=== PATIENT | female | born 1990 | race Caucasian/White ===

== ENCOUNTER 2017-03-12 20:58 | Inpatient (IN) | payer BC ==
[2017-03-12] MEDS ORDERED: Water For Irrigation,Sterile 1,000 ML Container IRR PRN (23:30)
[2017-03-12] MEDS ORDERED: Butorphanol 1 MG/ML SDV IVPUSH PRN (23:30)
[2017-03-12] MEDS ORDERED: Carboprost Tromethamine 250 MCG/1 ML Amp IM PRN (23:30)
[2017-03-12] MEDS ORDERED: Lidocaine 1% 50 ML MDV INJECT PRN (23:30)
[2017-03-12] MEDS ORDERED: Sodium Chloride 0.9% 10 ML Syringe FLUSH PRN (23:30)
[2017-03-12] MEDS ORDERED: Misoprostol 200 MCG Tab PO PRN (23:30)
[2017-03-12] MEDS ORDERED: Methylergonovine 0.2 MG/1 ML Amp IM PRN (23:30)
[2017-03-12] MEDS ORDERED: Sodium Chloride 0.9% 2.5 ML Syringe FLUSH PRN (23:30)
[2017-03-13] MEDS: Lactated Ringers 1,000 ML IV SCH ×3 (00:03→01:29)
[2017-03-13] MEDS ORDERED: Ropivacaine 0.2% 2 MG/ML 20 ML SDV ONE (00:34)
[2017-03-13] MEDS ORDERED: Oxytocin/Lactated Ringers 30 UNIT/500 ML BAG IV SCH (01:00)
--- NOTE | 2017-03-13 01:22 | PCM.PREANE ---
Preanesthetic Assessment - Anesthesia/Transfusion/Family Hx Anesthesia History: Prior Anesthesia Without Reaction Family History of Anesthesia Reaction: No Transfusion History: No Prior Transfusion(s) - Review of Systems Other: Reports: None - Physical Assessment Height: 5 ft 5 in Weight: 92.986 kg ASA Class: 2 Mental Status: Alert & Oriented x3 Airway Class: Mallampati = 2 Dentition: Reports: Normal Dentition Thyro-Mental Finger Breadths: 3 Mouth Opening Finger Breadths: 2 ROM/Head Extension: Full - Lab Values: Laboratory Last Values WBC 16.51 K/uL (4.0-11.0) H 03/13/17 00:03 RBC 4.76 M/uL (4.30-5.90) 03/13/17 00:03 Hgb 13.6 g/dL (12.0-16.0) 03/13/17 00:03 Hct 40.5 % (36.0-46.0) 03/13/17 00:03 MCV 85.1 fL (80.0-98.0) 03/13/17 00:03 MCH 28.6 pg (27.0-32.0) 03/13/17 00:03 MCHC 33.6 g/dL (31.0-37.0) 03/13/17 00:03 RDW Std Deviation 42.4 fl (28.0-62.0) 03/13/17 00:03 RDW Coeff of Chato 14 % (11.0-15.0) 03/13/17 00:03 Plt Count 163 K/uL (150-400) 03/13/17 00:03 MPV 9.80 fL (7.40-12.00) 03/13/17 00:03 Nucleated RBC % 0.0 /100WBC 03/13/17 00:03 Nucleated RBCs # 0 K/uL 03/13/17 00:03 - Allergies Allergies/Adverse Reactions: Allergies Allergy/AdvReac Type Severity Reaction Status Date / Time No Known Allergies Allergy Verified 11/23/16 18:16 - Blood Blood Available: Yes Product(s) Available: PRBC - Acknowledgements Anesthesia Type Planned: Epidural Pt an Appropriate Candidate for the Planned Anesthesia: Yes Alternatives and Risks of Anesthesia Discussed w Pt/Guardian: Yes Pt/Guardian Understands and Agrees with Anesthesia Plan: Yes PreAnesthesia Questionnaire - Past Surgical History HEENT Surgical History: Reports: Oral Surgery, Tonsillectomy - CURRENT (IN HOUSE) MEDS Current Meds: Current Medications Butorphanol Tartrate (Stadol) 1 mg IVPUSH Q1H PRN PRN Reason: Pain Last Admin: 03/13/17 00:05 Dose: 1 mg Carboprost Tromethamine (Hemabate Ds) 250 mcg IM ASDIRECTED PRN PRN Reason: Post Hemorrhage Lactated Ringer's (Ringers, Lactated) 1,000 mls @ 150 mls/hr IV ASDIRECTED JUDY Last Admin: 03/13/17 00:38 Dose: 999 mls/hr Oxytocin/Lactated Ringer's (Pitocin In Lr 30 Units/500 Ml) 30 unit in 500 mls @ 500 mls/hr IV ASDIRECTED JUDY PRN Reason: 500 MUNITS/MIN Stop: 03/13/17 01:59 Lidocaine HCl (Xylocaine 1%) 50 ml INJECT .ONCE PRN PRN Reason: Laceration repair Methylergonovine Maleate (Methergine) 0.2 mg IM ASDIRECTED PRN PRN Reason: Post Hemorrhage Misoprostol (Cytotec) 200 mcg PO .ONCE PRN PRN Reason: Post Hemorrhage Sodium Chloride (Saline Flush) 10 ml FLUSH ASDIRECTED PRN PRN Reason: Keep Vein Open Sodium Chloride (Saline Flush) 2.5 ml FLUSH ASDIRECTED PRN PRN Reason: Keep Vein Open Sterile Water (Sterile Water For Irrigation) 1,000 ml IRR ASDIRECTED PRN PRN Reason: delivery Discontinued Medications Ropivacaine/Fentanyl/NS (Fentanyl 2 Mcg-Ropiv 0.2%-Ns) Confirm Administered Dose 100 mls @ as directed .ROUTE .STK-MED ONE Stop: 03/13/17 00:35 Ropivacaine (Naropin 0.2%) Confirm Administered Dose 20 ml .ROUTE .STK-MED ONE Stop: 03/13/17 00:35
[2017-03-13] MEDS ORDERED: Lanolin 100% Cream 7 GM Tube TOP PRN (08:11)
[2017-03-13] MEDS ORDERED: Witch Hazel Medicated Pads 40/Jar TOP PRN (08:11)
[2017-03-13] MEDS ORDERED: Methylergonovine 0.2 MG/1 ML Amp IM PRN (08:11)
[2017-03-13] MEDS ORDERED: Docusate Sodium 100 MG Cap PO PRN (08:11)
[2017-03-13] MEDS ORDERED: Benzocaine/Menthol 20%-0.5% Spray 78 GM Cannister TOP PRN (08:11)
[2017-03-13] MEDS ORDERED: Bisacodyl 10 MG Supp RECTAL PRN (08:11)
[2017-03-13] MEDS ORDERED: oxyCODONE 5 MG Tab PO PRN (08:11)
--- NOTE | 2017-03-13 10:42 | PCM48HPAN ---
Post Anesthesia Note - EVALUATION WITHIN 48HRS OF ANESTHETIC Vital Signs in Normal Range: Yes Patient Participated in Evaluation: Yes Respiratory Function Stable: Yes Airway Patent: Yes Cardiovascular Function Stable: Yes Hydration Status Stable: Yes Pain Control Satisfactory: Yes Nausea and Vomiting Control Satisfactory: Yes Mental Status Recovered: Yes
--- NOTE | 2017-03-13 13:10 | OR ---
SURGEON: Amita Smith M.D. DATE OF PROCEDURE: 03/13/2017 PREOPERATIVE DIAGNOSIS: A 40 and 1/7th week intrauterine , active spontaneous labor. POSTOPERATIVE DIAGNOSIS: A 40 and 1/7th week intrauterine , active spontaneous labor. PROCEDURE: Term spontaneous vaginal delivery with repair of left labial laceration. ANESTHESIA: Epidural. ESTIMATED BLOOD LOSS: Less than 300 mL. FINDINGS: Live born male, score 8 and 9. Weight is 3640 g. Placenta spontaneous, Melissa intact with 3 vessels. Left labial laceration was repaired for hemostasis. COMPLICATIONS: None known. DISPOSITION: Mother and baby are stable in recovery. BRIEF HISTORY: This is a 26-year-old female, G1, P0. She presents at 40 weeks gestation with regular painful contractions. She presents to Labor and Delivery, initially 2-3 cm dilated, progressed to 5 cm dilatation. She received an epidural for pain control. When she was 6 to 7 cm dilated, she progressed to complete with a bulging bag. Artificial rupture of membranes was performed. She had category 1 heart tones throughout stage I of labor. During stage II of labor, she had category 1 and category 2 heart tones always with good variability. DESCRIPTION OF PROCEDURE: With the patient in dorsal lithotomy position, the patient pushed over a 2.5 hour time period to a 5+ station, at which time the head was delivered spontaneously and atraumatically over the perineum with support with subsequent delivery of the 's shoulders and body. The infant was bulb suctioned by nose and mouth. The cord was clamped x2 and cut, and the infant was handed to the nurse in attendance at delivery. The infant was a liveborn male, score 8 and 9, weighing 3640 g. Cord blood was collected for cord ABGs as well as routine cord blood sampling. Pitocin was initiated after delivery of the to assist with delivery of the placenta, which was delivered spontaneously, Melissa intact with 3 vessels. Upon inspection of the pelvis and perineum, there were no periurethral, vaginal sidewall, cervical, rectal, or perineal lacerations. There was a left labial laceration that was repaired with a running subcuticular suture of 3-0 Caprosyn. Final sponge, needle, instrument count were correct. There were no known complications. The and mother are in LDRP in good condition. CAROLINE / ALEX /[id number]
[2017-03-13] MEDS: Ibuprofen 800 MG Tab PO PRN (20:07)
[2017-03-13] MEDS: Acetaminophen 500 MG Tab PO PRN (21:48)
[2017-03-14] MEDS: Ibuprofen 800 MG Tab PO PRN ×3 (02:48→22:57)
--- NOTE | 2017-03-14 09:57 | PCM.PNPP ---
- General Info Date of Service: 03/14/17 Functional Status: Reports: pain controlled, tolerating diet, ambulating, urinating - Review of Systems General: Reports: No Symptoms HEENT: Reports: no symptoms Pulmonary: Reports: no symptoms Cardiovascular: Reports: No Symptoms Gastrointestinal: Reports: No symptoms Genitourinary: Reports: no symptoms Musculoskeletal: Reports: no symptoms Skin: Reports: no symptoms Neurological: Reports: No Symptoms Psychiatric: Reports: no symptoms - Patient Data Vital Signs - most recent: Last Vital Signs Temp 36.2 C 03/14/17 07:32 Pulse 66 03/14/17 07:32 Resp 16 03/14/17 07:32 BP 92/53 L 03/14/17 07:32 Pulse Ox 98 03/14/17 07:32 Weight - most recent: 92.986 kg Lab Results - last 24 hrs: Laboratory Results - last 24 hr 03/14/17 Range/Units 05:50 Hgb 11.5 L (12.0-16.0) g/dL Hct 34.6 L (36.0-46.0) % Med Orders - Current: Current Medications Acetaminophen (Tylenol Extra Strength) 1,000 mg PO Q4H PRN PRN Reason: Pain Last Admin: 03/13/17 21:48 Dose: 1,000 mg Benzocaine/Menthol (Dermoplast Pain Relief 20%-0.5% [place]) 78 gm TOP ASDIRECTED PRN PRN Reason: Perineal Comfort Measure Last Admin: 03/13/17 15:41 Dose: 78 gm Bisacodyl (Dulcolax) 10 mg RECTAL .ONCE PRN PRN Reason: Constipation Docusate Sodium (Colace) 100 mg PO BID PRN PRN Reason: Constipation Emollient Ointment (Lansinoh Hpa) 0 gm TOP ASDIRECTED PRN PRN Reason: Sore Nipples Ibuprofen (Motrin) 800 mg PO Q6H PRN PRN Reason: Pain Last Admin: 03/14/17 02:48 Dose: 800 mg Methylergonovine Maleate (Methergine) 0.2 mg IM .ONCE PRN PRN Reason: Excessive Vaginal Bleeding Oxycodone HCl (Oxycodone) 5 mg PO Q2H PRN PRN Reason: Pain Witch Silva (Tucks) 1 pad TOP ASDIRECTED PRN PRN Reason: comfort care Last Admin: 03/13/17 15:41 Dose: 1 pad Discontinued Medications Butorphanol Tartrate (Stadol) 1 mg IVPUSH Q1H PRN PRN Reason: Pain Last Admin: 03/13/17 00:05 Dose: 1 mg Carboprost Tromethamine (Hemabate Ds) 250 mcg IM ASDIRECTED PRN PRN Reason: Post Hemorrhage Lactated Ringer's (Ringers, Lactated) 1,000 mls @ 150 mls/hr IV ASDIRECTED JUDY Last Infusion: 03/13/17 07:30 Dose: Infused Oxytocin/Lactated Ringer's (Pitocin In Lr 30 Units/500 Ml) 30 unit in 500 mls @ 500 mls/hr IV ASDIRECTED JUDY PRN Reason: 500 MUNITS/MIN Stop: 03/13/17 01:59 Last Infusion: 03/13/17 08:05 Dose: Infused Ropivacaine/Fentanyl/NS (Fentanyl 2 Mcg-Ropiv 0.2%-Ns) Confirm Administered Dose 100 mls @ as directed .ROUTE .[facility] ONE Stop: 03/13/17 00:35 Last Admin: 03/13/17 02:17 Dose: Not Given Lidocaine HCl (Xylocaine 1%) 50 ml INJECT .ONCE PRN PRN Reason: Laceration repair Last Admin: 03/13/17 07:45 Dose: 50 ml Methylergonovine Maleate (Methergine) 0.2 mg IM ASDIRECTED PRN PRN Reason: Post Hemorrhage Misoprostol (Cytotec) 200 mcg PO .ONCE PRN PRN Reason: Post Hemorrhage Ropivacaine (Naropin 0.2%) Confirm Administered Dose 20 ml .ROUTE .[facility] ONE Stop: 03/13/17 00:35 Last Admin: 03/13/17 02:17 Dose: Not Given Sodium Chloride (Saline Flush) 10 ml FLUSH ASDIRECTED PRN PRN Reason: Keep Vein Open Sodium Chloride (Saline Flush) 2.5 ml FLUSH ASDIRECTED PRN PRN Reason: Keep Vein Open Sterile Water (Sterile Water For Irrigation) 1,000 ml IRR ASDIRECTED PRN PRN Reason: delivery Last Admin: 03/13/17 07:29 Dose: 1,000 ml - Infant Interaction Disposition, : to Nursery Infant Interaction: Not Interacting Feeding: Breastfed ; Nursed Well Support Person: , Mother - Recovery Exam Fundal Tone: Firm Fundal Level: 1 Fingerbreadths Below Umbilicus Fundal Placement: Midline Lochia Amount: Scant Lochia Color: Rubra/Red Perineum Description: Edematous Episiotomy/Laceration: Approximated Bladder Status: Voiding Urinary Elimination: Voided - Exam General: alert, oriented HEENT: Pupils equal Neck: supple Cardiovascular: Regular Rhythm Abdomen: soft, no tenderness, no distension Extremities: no edema Skin: warm, dry, intact Neurological: no new focal deficit Psy/Mental Status: alert, normal affect, normal mood - Problem List & Annotations (1) Vaginal delivery SNOMED Code(s): 554336755 Code(s): O80 - ENCOUNTER FOR FULL-TERM UNCOMPLICATED DELIVERY Status: Acute Current Visit: Yes - Problem List Review Problem List Initiated/Reviewed/Updated: Yes - My Orders Last 24 Hours: My Active Orders 03/13/17 Lunch Regular Diet [DIET] - Assessment Assessment:: PPD #1 after minimal lochia, , some difficulty latching. Would like to go home today. - Plan Plan:: Discharge instructions reviewed. Dismiss to home today.
[2017-03-14] MEDS: Acetaminophen 500 MG Tab PO PRN (18:57)
[2017-03-15] MEDS: Acetaminophen 500 MG Tab PO PRN (04:56)
--- NOTE | 2017-03-15 08:11 | PCM.PNPP ---
[id number] Status: Reports: pain controlled, tolerating diet, ambulating, urinating - Review of Systems General: Denies: Fever, Weakness, Fatigue Pulmonary: Denies: shortness of breath, pleuritic chest pain, cough Cardiovascular: Denies: Chest Pain, Palpitations, Dyspnea on Exertion Gastrointestinal: Denies: Abdominal pain Genitourinary: Denies: dysuria Psychiatric: Reports: no symptoms - General Info Date of Service: 03/15/17 - Patient Data Vital Signs - most recent: Last Vital Signs Temp 36.2 C 03/15/17 04:45 Pulse 56 L 03/15/17 04:45 Resp 15 03/15/17 04:45 BP 102/66 03/15/17 04:45 Pulse Ox 98 03/15/17 04:45 Weight - most recent: 92.986 kg Med Orders - Current: Current Medications Acetaminophen (Tylenol Extra Strength) 1,000 mg PO Q4H PRN PRN Reason: Pain Last Admin: 03/15/17 04:56 Dose: 1,000 mg Benzocaine/Menthol (Dermoplast Pain Relief 20%-0.5% [place]) 78 gm TOP ASDIRECTED PRN PRN Reason: Perineal Comfort Measure Last Admin: 03/13/17 15:41 Dose: 78 gm Bisacodyl (Dulcolax) 10 mg RECTAL .ONCE PRN PRN Reason: Constipation Docusate Sodium (Colace) 100 mg PO BID PRN PRN Reason: Constipation Emollient Ointment (Lansinoh Hpa) 0 gm TOP ASDIRECTED PRN PRN Reason: Sore Nipples Ibuprofen (Motrin) 800 mg PO Q6H PRN PRN Reason: Pain Last Admin: 03/14/17 22:57 Dose: 800 mg Methylergonovine Maleate (Methergine) 0.2 mg IM .ONCE PRN PRN Reason: Excessive Vaginal Bleeding Oxycodone HCl (Oxycodone) 5 mg PO Q2H PRN PRN Reason: Pain Witch Silva (Tucks) 1 pad TOP ASDIRECTED PRN PRN Reason: comfort care Last Admin: 03/13/17 15:41 Dose: 1 pad Discontinued Medications Butorphanol Tartrate (Stadol) 1 mg IVPUSH Q1H PRN PRN Reason: Pain Last Admin: 03/13/17 00:05 Dose: 1 mg Carboprost Tromethamine (Hemabate Ds) 250 mcg IM ASDIRECTED PRN PRN Reason: Post Hemorrhage Lactated Ringer's (Ringers, Lactated) 1,000 mls @ 150 mls/hr IV ASDIRECTED JUDY Last Infusion: 03/13/17 07:30 Dose: Infused Oxytocin/Lactated Ringer's (Pitocin In Lr 30 Units/500 Ml) 30 unit in 500 mls @ 500 mls/hr IV ASDIRECTED JUDY PRN Reason: 500 MUNITS/MIN Stop: 03/13/17 01:59 Last Infusion: 03/13/17 08:05 Dose: Infused Ropivacaine/Fentanyl/NS (Fentanyl 2 Mcg-Ropiv 0.2%-Ns) Confirm Administered Dose 100 mls @ as directed .ROUTE .Anywhere to Go ONE Stop: 03/13/17 00:35 Last Admin: 03/13/17 02:17 Dose: Not Given Lidocaine HCl (Xylocaine 1%) 50 ml INJECT .ONCE PRN PRN Reason: Laceration repair Last Admin: 03/13/17 07:45 Dose: 50 ml Methylergonovine Maleate (Methergine) 0.2 mg IM ASDIRECTED PRN PRN Reason: Post Hemorrhage Misoprostol (Cytotec) 200 mcg PO .ONCE PRN PRN Reason: Post Hemorrhage Ropivacaine (Naropin 0.2%) Confirm Administered Dose 20 ml .ROUTE .Anywhere to Go ONE Stop: 03/13/17 00:35 Last Admin: 03/13/17 02:17 Dose: Not Given Sodium Chloride (Saline Flush) 10 ml FLUSH ASDIRECTED PRN PRN Reason: Keep Vein Open Sodium Chloride (Saline Flush) 2.5 ml FLUSH ASDIRECTED PRN PRN Reason: Keep Vein Open Sterile Water (Sterile Water For Irrigation) 1,000 ml IRR ASDIRECTED PRN PRN Reason: delivery Last Admin: 03/13/17 07:29 Dose: 1,000 ml - Interaction Disposition, : [place] to Nursery Interaction: Not Interacting Feeding: Attempted ; Nursed Fair/Poor (supplementing), Encouraged to Breastfeed Support Person: , Mother - Recovery Exam Fundal Tone: Firm Fundal Level: 1 Fingerbreadths Below Umbilicus Fundal Placement: Midline Lochia Amount: Scant Lochia Color: Rubra/Red Perineum Description: Intact, Minimal Bruising/Swelling Episiotomy/Laceration: Approximated Bladder Status: Nonpalpable, Voiding Urinary Elimination: Voided - Exam General: alert, oriented Lungs: Clear to auscultation, Normal respiratory effort Cardiovascular: Regular Rate, Regular Rhythm Abdomen: bowel sounds present, soft, no tenderness, no distension Extremities: no edema Psy/Mental Status: alert, normal affect, normal mood - Problem List Review Problem List Initiated/Reviewed/Updated: Yes - Assessment Assessment:: PPD #2 after minimal lochia and pain. Discharge home today. - Plan Plan:: Discharge instructions reviewed. Nothing in the vagina for 6 weeks. Continue PNV while breast feeding. Can use OTC ibuprofen/tylenol as needed for pain. Instructed patient to call if she develops fever greater than 101 or bleeding through a large pad a hour. F/U with [facility] in 6 weeks. <Nadege Garcia - Last Filed: 03/15/17 08:34> - Patient Data Vital Signs - most recent: Last Vital Signs Temp 36.2 C 03/15/17 04:45 Pulse 56 L 03/15/17 04:45 Resp 15 03/15/17 04:45 BP 102/66 03/15/17 04:45 Pulse Ox 98 03/15/17 04:45 Med Orders - Current: Current Medications Acetaminophen (Tylenol Extra Strength) 1,000 mg PO Q4H PRN PRN Reason: Pain Last Admin: 03/15/17 04:56 Dose: 1,000 mg Benzocaine/Menthol (Dermoplast Pain Relief 20%-0.5% [place]) 78 gm TOP ASDIRECTED PRN PRN Reason: Perineal Comfort Measure Last Admin: 03/13/17 15:41 Dose: 78 gm Bisacodyl (Dulcolax) 10 mg RECTAL .ONCE PRN PRN Reason: Constipation Docusate Sodium (Colace) 100 mg PO BID PRN PRN Reason: Constipation Emollient Ointment (Lansinoh Hpa) 0 gm TOP ASDIRECTED PRN PRN Reason: Sore Nipples Ibuprofen (Motrin) 800 mg PO Q6H PRN PRN Reason: Pain Last Admin: 03/15/17 08:15 Dose: 800 mg Methylergonovine Maleate (Methergine) 0.2 mg IM .ONCE PRN PRN Reason: Excessive Vaginal Bleeding Oxycodone HCl (Oxycodone) 5 mg PO Q2H PRN PRN Reason: Pain Witch Silva (Tucks) 1 pad TOP ASDIRECTED PRN PRN Reason: comfort care Last Admin: 03/13/17 15:41 Dose: 1 pad Discontinued Medications Butorphanol Tartrate (Stadol) 1 mg IVPUSH Q1H PRN PRN Reason: Pain Last Admin: 03/13/17 00:05 Dose: 1 mg Carboprost Tromethamine (Hemabate Ds) 250 mcg IM ASDIRECTED PRN PRN Reason: Post Hemorrhage Lactated Ringer's (Ringers, Lactated) 1,000 mls @ 150 mls/hr IV ASDIRECTED JUDY Last Infusion: 03/13/17 07:30 Dose: Infused Oxytocin/Lactated Ringer's (Pitocin In Lr 30 Units/500 Ml) 30 unit in 500 mls @ 500 mls/hr IV ASDIRECTED JUDY PRN Reason: 500 MUNITS/MIN Stop: 03/13/17 01:59 Last Infusion: 03/13/17 08:05 Dose: Infused Ropivacaine/Fentanyl/NS (Fentanyl 2 Mcg-Ropiv 0.2%-Ns) Confirm Administered Dose 100 mls @ as directed .ROUTE .Anywhere to Go ONE Stop: 03/13/17 00:35 Last Admin: 03/13/17 02:17 Dose: Not Given Lidocaine HCl (Xylocaine 1%) 50 ml INJECT .ONCE PRN PRN Reason: Laceration repair Last Admin: 03/13/17 07:45 Dose: 50 ml Methylergonovine Maleate (Methergine) 0.2 mg IM ASDIRECTED PRN PRN Reason: Post Hemorrhage Misoprostol (Cytotec) 200 mcg PO .ONCE PRN PRN Reason: Post Hemorrhage Ropivacaine (Naropin 0.2%) Confirm Administered Dose 20 ml .ROUTE .Anywhere to Go ONE Stop: 03/13/17 00:35 Last Admin: 03/13/17 02:17 Dose: Not Given Sodium Chloride (Saline Flush) 10 ml FLUSH ASDIRECTED PRN PRN Reason: Keep Vein Open Sodium Chloride (Saline Flush) 2.5 ml FLUSH ASDIRECTED PRN PRN Reason: Keep Vein Open Sterile Water (Sterile Water For Irrigation) 1,000 ml IRR ASDIRECTED PRN PRN Reason: delivery Last Admin: 03/13/17 07:29 Dose: 1,000 ml - Plan Plan:: Patient seen and examined, agree with discharge.
[2017-03-15] MEDS: Ibuprofen 800 MG Tab PO PRN (08:15)
[2017-03-15 14:28] VITALS: BP 110/56
== END 2017-03-15 12:20 | disposition home or self-care (01) | DRG 560 ==
LOC: MW.OBCHECK 20:58 → MW.OB 21:01 → MW.OBCHECK 23:45 → MW.OB 23:45 → OBSVTOIN 03-13 07:29 → MW.OB 03-13 13:39
PROVIDERS: ADMIT Obstetrics & Gynecology; ATTEND Obstetrics & Gynecology
PROC: 10E0XZZ Delivery of Products of Conception, External Approach (ICD-10-PCS; principal; 2017-03-13)
PROC: 0HQ9XZZ Repair Perineum Skin, External Approach (ICD-10-PCS; 2017-03-13)
PROC: 10907ZC Drainage of Amniotic Fluid, Therapeutic from Products of Conception, Via Natural or Artificial Opening (ICD-10-PCS; 2017-03-13)
DX: O70.0 First degree perineal laceration during delivery (principal); Z3A.40 40 weeks gestation of pregnancy; Z37.0 Single live birth
CPT/HCPCS: 01967; 36415; 59025; 85014; 85018; 85027; 86850; 86900; 86901; A9270-GY; J0595; J7120

== ENCOUNTER 2020-11-19 00:48 | Inpatient (IN) | payer BC ==
[2020-11-19] MEDS ORDERED: Oxytocin/0.9 % Sodium Chloride 30 UNIT/500 ML BAG ONE (23:07)
[2020-11-19] MEDS ORDERED: fentaNYL 100 MCG/2 ML SDV ONE (23:35)
[2020-11-19] MEDS ORDERED: Ropivacaine HCl/PF 100 ML ONE (23:35)
--- NOTE | 2020-11-19 23:56 | PCM.PREANE ---
Preanesthetic Assessment - Anesthesia/Transfusion/Family Hx Anesthesia History: Prior Anesthesia Without Reaction Family History of Anesthesia Reaction: No Transfusion History: No Prior Transfusion(s) - Physical Assessment NPO Status Date: 11/19/20 NPO Status Time: 19:00 ASA Class: 2 - Allergies Allergies/Adverse Reactions: Allergies Allergy/AdvReac Type Severity Reaction Status Date / Time No Known Allergies Allergy Verified 11/23/16 18:16 - Acknowledgements Anesthesia Type Planned: Epidural Pt an Appropriate Candidate for the Planned Anesthesia: Yes Alternatives and Risks of Anesthesia Discussed w Pt/Guardian: Yes Pt/Guardian Understands and Agrees with Anesthesia Plan: Yes 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STK-MED ONE Stop: 11/19/20 23:36
--- NOTE | 2020-11-19 23:59 | PCM.PRNOTE ---
- Free Text/Narrative Note: Anes NOte Patietn requests epidural for L&D. Sitting position. Level L3-L4 midlien approach. Sterile technique. Chloraprep scrub to lumbar area. Sterile fenestrated drape applied. Epidural space easily achieved single attempt with ease using AGUSTINA technique. AGUSTINA at 4 cm. Cathreaded 5 cm with ease. Cath secured a tskin using sterile clear adhesive dressing. Test 2338 3 cc 1.5% lido with epi negative. 2341 Load 10 cc 0.2% ropivicaine with 1 mcg cc fentanyl cc in slow divided doses. 2345 Pump started with 90 cc same solution. Rate is 8 cc hr with 6 cc q 20 min prn bolus. Prabhjot well. 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
[2020-11-20] MEDS ORDERED: oxyCODONE 5 MG Tab PO PRN (01:08)
[2020-11-20] MEDS ORDERED: Docusate Sodium 100 MG Cap PO PRN (01:08)
[2020-11-20] MEDS ORDERED: Witch Hazel Medicated Pads 40/Jar TOP PRN (01:08)
[2020-11-20] MEDS ORDERED: Bisacodyl 10 MG Supp RECTAL PRN (01:08)
[2020-11-20] MEDS ORDERED: Lanolin 100% Cream 7 GM Tube TOP PRN (01:08)
[2020-11-20] MEDS ORDERED: Benzocaine/Menthol 20%-0.5% Spray 78 GM Cannister TOP PRN (01:08)
--- NOTE | 2020-11-20 01:11 | PCM.DEL ---
L & D Note - General Info Date of Service: 11/20/20 Mother's Due Date: 11/21/20 - Delivery Note Labor: Spontaneous Delivery Outcome: Livebirth Infant Delivery Method: Spontaneous Vaginal Delivery-Single Presentation: Vertex Nuchal Cord: None Anesthesia Type: Epidural Amniotic Fluid Description: Clear Episiotomy Type: None Laceration: 1st Degree Suture type: Vicryl Suture size: 3-0 Placenta: Intact, Spontaneous Cord: 3 Vessels Estimated Blood Loss: 300 Resuscitation Needed: No : Suctioned, Stimulated, Warmed, Junction Used Score 1 min: 8 Score 5 min: 9 Delivery Comments (Free Text/Narrative):: Live male at 0048, weight 3990g - General Info Date of Service: 11/20/20 - Patient Data Med Orders - Current: Current Medications Discontinued Medications Fentanyl (Sublimaze) Confirm Administered Dose 100 mcg .ROUTE .STK-MED ONE Stop: 11/19/20 23:36 Oxytocin/Sodium Chloride (Oxytocin 30 Unit/500 Ml-Ns) Confirm Administered Dose 30 unit in 500 mls @ as directed .ROUTE .STK-MED ONE Stop: 11/19/20 23:08 Ropivacaine (Naropin 0.2%) Confirm Administered Dose 100 mls @ as directed .ROUTE .STK-MED ONE Stop: 11/19/20 23:36 - Problem List & Annotations (1) Vaginal delivery SNOMED Code(s): 765030241 Code(s): O80 - ENCOUNTER FOR FULL-TERM UNCOMPLICATED DELIVERY Status: Acute Current Visit: No - Problem List Review Problem List Initiated/Reviewed/Updated: Yes - My Orders Last 24 Hours: My Active Orders 11/20/20 01:08 Patient Status [ADT] Routine May Shower [RC] ASDIRECTED Notify Provider Vital Signs [RC] ASDIRECTED Up ad Dayna [RC] ASDIRECTED Vital Signs [RC] PER UNIT ROUTINE Acetaminophen [Tylenol Extra Strength] 1,000 mg PO Q6H PRN Benzocaine/Menthol [Dermoplast Pain Relief 20%-0.5% [place]] 78 gm TOP ASDIRECTED PRN Docusate Sodium [Colace] 100 mg PO BID PRN Ibuprofen [Motrin] 800 mg PO Q8H PRN Lanolin [Lansinoh HPA] See Dose Instructions TOP ASDIRECTED PRN bisacodyL [Dulcolax] 10 mg RECTAL ONETIME PRN oxyCODONE 5 mg PO Q2H PRN witch Mona [Tucks] 1 pad TOP ASDIRECTED PRN Assess Lochia [WOMSER] Per Unit Routine Assess Uterine Involution [WOMSER] Per Unit Routine Ice Therapy [OM.PC] Per Unit Routine Perineal Care [OM.PC] Per Unit Routine Peripheral IV Discontinue [OM.PC] Routine Sitz Bath [OM.PC] Per Unit Routine Resuscitation Status Routine 11/20/20 01:09 Cooling Warming Measures [RC] ASDIRECTED 11/20/20 Breakfast Regular Diet [DIET] 11/21/20 05:11 HEMOGLOBIN/HEMATOCRIT,HH [HEME] Timed - Assessment Assessment:: 29yo presented in labor with SROM at 39w5d. Quickly progressed to complete cervical dilation after epidural and delivered via at 39w6d - Plan Plan:: Admit to unit for routine care. Rh positive, Rubella immune, GBS negative
--- NOTE | 2020-11-20 01:34 | OR ---
SURGEON: Leona Hastings MD DATE OF PROCEDURE: 11/20/2020 PREOPERATIVE DIAGNOSES: 1. A 29-year-old, 2, para 1-0-0-1 at 39 weeks and 5 days' gestation. 2. Labor with spontaneous rupture of membranes. 3. Group B streptococcus negative. POSTOPERATIVE DIAGNOSES: 1. A 29-year-old, 2, para 2-0-0-2 at 39 weeks and 6 days' gestation. 2. Group B streptococcus negative. 3. First-degree perineal laceration. PROCEDURES: Spontaneous vaginal delivery and repair of first-degree perineal laceration. PRIMARY SURGEON: Leona Hastings MD. ANESTHESIA: Epidural. ESTIMATED BLOOD LOSS: 300 mL. FINDINGS: Live male in cephalic presentation. scores 8 and 9 at one and five minutes respectively. Weight 3990 g. Placenta intact with 3-vessel cord. First-degree perineal laceration. Fundus firm. INDICATIONS: This is a 29-year-old, G2, P 1-0-0-1, who presented at 39 weeks and 5 days' gestation complaining of spontaneous rupture of membranes and contractions. Upon presentation, her cervix was found to be 4 to 5 cm dilated. She quickly progressed to 9 cm dilated and received an epidural for pain control. She progressed to complete cervical dilation and began pushing. DESCRIPTION OF PROCEDURE: Over the next 45 minutes, the patient pushed and delivered a live male infant. The head was delivered followed by the shoulders and remainder of the body. The was placed on the maternal abdomen. After approximately 60 seconds, the cord was clamped and cut. The perineum was inspected and first-degree perineal laceration was noted. This was repaired to anatomy and hemostasis with 3-0 Vicryl. The placenta then delivered intact with 3-vessel cord via the Best- Mckenzie maneuver. The fundus was firm below the umbilicus with scant bleeding. [id number] / MODL /[id number]
--- NOTE | 2020-11-20 07:52 | PCM48HPAN ---
Post Anesthesia Note - EVALUATION WITHIN 48HRS OF ANESTHETIC Vital Signs in Normal Range: Yes Patient Participated in Evaluation: Yes Respiratory Function Stable: Yes Airway Patent: Yes Cardiovascular Function Stable: Yes Hydration Status Stable: Yes Pain Control Satisfactory: Yes Nausea and Vomiting Control Satisfactory: Yes Mental Status Recovered: Yes Vital Signs: Last Vital Signs Temp 36.6 C 11/20/20 04:46 Pulse 92 11/20/20 04:46 Resp 16 11/20/20 04:46 BP 111/65 11/20/20 04:46 Pulse Ox
[2020-11-20] MEDS: Ibuprofen 800 MG Tab PO PRN ×2 (07:57→16:09)
[2020-11-20] MEDS: Acetaminophen 500 MG Tab PO PRN (14:21)
[2020-11-21] MEDS: Acetaminophen 500 MG Tab PO PRN (04:52)
--- NOTE | 2020-11-21 07:45 | PCM48HPAN ---
Post Anesthesia Note - EVALUATION WITHIN 48HRS OF ANESTHETIC Vital Signs in Normal Range: Yes Patient Participated in Evaluation: Yes Respiratory Function Stable: Yes Airway Patent: Yes Cardiovascular Function Stable: Yes Hydration Status Stable: Yes Pain Control Satisfactory: Yes Nausea and Vomiting Control Satisfactory: Yes Mental Status Recovered: Yes Vital Signs: Last Vital Signs Temp 36.4 C 11/21/20 04:49 Pulse 79 11/21/20 04:49 Resp 15 11/21/20 04:49 BP 106/78 11/21/20 04:49 Pulse Ox 98 11/21/20 04:49 - COMMENTS/OBSERVATIONS Free Text/Narrative:: Doing well. No problems noted.
[2020-11-21] MEDS: Ibuprofen 800 MG Tab PO PRN (08:54)
--- NOTE | 2020-11-21 09:04 | PCM.PNPP ---
- General Info Date of Service: 11/21/20 Functional Status: Reports: Pain Controlled, Tolerating Diet, Ambulating, Urinating - Review of Systems General: Reports: Fatigue. Denies: Fever, Weakness Pulmonary: Denies: Shortness of Breath Cardiovascular: Denies: Chest Pain, Palpitations, Lightheadedness Gastrointestinal: Denies: Abdominal Pain, Nausea, Vomiting Genitourinary: Denies: Flank Pain Musculoskeletal: Reports: No Symptoms Skin: Reports: No Symptoms Neurological: Reports: No Symptoms Psychiatric: Reports: No Symptoms - General Info Date of Service: 11/21/20 - Patient Data Vital Signs - Most Recent: Last Vital Signs Temp 36.4 C 11/21/20 04:49 Pulse 79 11/21/20 04:49 Resp 15 11/21/20 04:49 BP 106/78 11/21/20 04:49 Pulse Ox 98 11/21/20 04:49 Weight - Most Recent: 95.254 kg Lab Results - Last 24 Hours: Laboratory Results - last 24 hr 11/21/20 Range/Units 04:53 Hgb 12.0 (12.0-16.0) g/dL Hct 36.0 (36.0-46.0) % Med Orders - Current: Current Medications Acetaminophen (Tylenol Extra Strength) 1,000 mg PO Q6H PRN PRN Reason: Pain Last Admin: 11/21/20 04:52 Dose: 1,000 mg Documented by: Benzocaine/Menthol (Dermoplast Pain Relief 20%-0.5% [place]) 78 gm TOP ASDIRECTED PRN PRN Reason: Perineal Comfort Measure Last Admin: 11/20/20 07:39 Dose: 1 canister Documented by: Bisacodyl (Dulcolax) 10 mg RECTAL ONETIME PRN PRN Reason: Constipation Docusate Sodium (Colace) 100 mg PO BID PRN PRN Reason: Constipation Emollient Ointment (Lansinoh Hpa) 0 gm TOP ASDIRECTED PRN PRN Reason: Sore Nipples Last Admin: 11/20/20 07:38 Dose: 1 gm Documented by: Ibuprofen (Motrin) 800 mg PO Q8H PRN PRN Reason: Pain Last Admin: 11/21/20 08:54 Dose: 800 mg Documented by: Oxycodone HCl (Oxycodone) 5 mg PO Q2H PRN PRN Reason: Pain Witch Silva (Tucks) 1 pad TOP ASDIRECTED PRN PRN Reason: comfort care Last Admin: 11/20/20 07:38 Dose: 1 pad Documented by: Discontinued Medications Fentanyl (Sublimaze) Confirm Administered Dose 100 mcg .ROUTE .STK-MED ONE Stop: 11/19/20 23:36 Last Admin: 11/20/20 14:45 Dose: Not Given Documented by: Oxytocin/Sodium Chloride (Oxytocin 30 Unit/500 Ml-Ns) Confirm Administered Dose 30 unit in 500 mls @ as directed .ROUTE .STK-MED ONE Stop: 11/19/20 23:08 Ropivacaine (Naropin 0.2%) Confirm Administered Dose 100 mls @ as directed .ROUTE .STK-MED ONE Stop: 11/19/20 23:36 Last Admin: 11/20/20 14:46 Dose: Not Given Documented by: - Interaction Support Person: , Mother - Recovery Exam Fundal Tone: Firm Fundal Level: 1 Fingerbreadths Below Umbilicus Fundal Placement: Midline Lochia Amount: Scant Lochia Color: Rubra/Red Perineum Description: Intact, Minimal Bruising/Swelling Other Perinuem Description: 1st degree laceration Episiotomy/Laceration: Approximated Bladder Status: Voiding Urinary Elimination: Voided - Exam General: Alert, Oriented Lungs: Normal Respiratory Effort Cardiovascular: Regular Rate, Regular Rhythm GI/Abdominal Exam: Normal Bowel Sounds, Soft Extremities: Pedal Edema (trace). No: Sergio's Sign Skin: Warm, Dry, Intact Neurological: No New Focal Deficit Psy/Mental Status: Alert, Normal Affect, Normal Mood - Problem List & Annotations (1) Vaginal delivery SNOMED Code(s): 400826488 Code(s): O80 - ENCOUNTER FOR FULL-TERM UNCOMPLICATED DELIVERY Status: Acute Current Visit: No - Problem List Review Problem List Initiated/Reviewed/Updated: Yes - My Orders Last 24 Hours: My Active Orders 11/21/20 09:02 Ready for Discharge [RC] PER UNIT ROUTINE - Assessment Assessment:: 29yo PPD1 - Plan Plan:: Doing well overall.Would like to go home. Discharge instructions reviewed. Follow up at [facility] 4 weeks. Discharge to home.
[2020-11-21 09:40] VITALS: BP 132/84; PULSE 75
== END 2020-11-21 12:16 | disposition home or self-care (01) | DRG 560 ==
LOC: MW.OB 00:48 → OBSVTOIN 11-20 00:48 → MW.OB 11-20 02:45
PROVIDERS: ADMIT Obstetrics & Gynecology; ATTEND Obstetrics & Gynecology
PROC: 10E0XZZ Delivery of Products of Conception, External Approach (ICD-10-PCS; principal; 2020-11-20)
PROC: 0HQ9XZZ Repair Perineum Skin, External Approach (ICD-10-PCS; 2020-11-20)
PROC: 3E0R3BZ Introduction of Anesthetic Agent into Spinal Canal, Percutaneous Approach (ICD-10-PCS; 2020-11-20)
PROC: 00HU33Z Insertion of Infusion Device into Spinal Canal, Percutaneous Approach (ICD-10-PCS; 2020-11-20)
DX: O70.0 First degree perineal laceration during delivery (principal); Z3A.39 39 weeks gestation of pregnancy; Z37.0 Single live birth
CPT/HCPCS: 01967; 36415; 59409; 85014; 85018; 85027; 86592; 86850; 86900; 86901; A9270-GY; J2590; J2795; J3010